=== PATIENT | male | born 1945 | race Caucasian/White ===

== ENCOUNTER → 2019-06-26 | Outpatient (CLI) | payer OTHER ==
[~2019-06-26] MED LIST: CETI10CH PO; FINA5TAB2 PO; GEMF600T5 PO; GLUCTAB64 PO; HYDR25TAB PO; INDO25CA PO
[2019-06-26 11:09] LABS: CALCIUM LEVEL 9.1 MG/DL (8.8-10.2); CREATININE FOR GFR 1.35 MG/DL (0.70-1.30); GLOMERULAR FILTRATION RATE 54.8 (>42); POTASSIUM SERUM 4.7 MEQ/L (3.5-5.1)
== END ==
LOC: M LAB 09:48
PROVIDERS: ATTEND Ophthalmology Retina Specialist
DX: H30.13 Disseminated chorioretinal inflammation, generalized (principal)

== ENCOUNTER → 2019-06-26 | Outpatient (CLI) | payer OTHER ==
[~2019-06-26] MED LIST changes: +INDO-16 PO; -INDO25CA PO
--- NOTE | 2019-06-27 03:43 | REP ---
Clinical: Hydrocele. Technique: Real time bartlett scale and color Doppler evaluation using linear high frequency and curved array transducers. Findings: A large complex left hydrocele with debris is appreciated filling the left mala scrotum and extending into the mid left inguinal canal. Left testicle is normal in appearance and vascularity without torsion and measures 4.8 x 2.9 x 2.7 cm. Incidental left epididymal head cyst measures 7 x 9 x 7 mm. No varicocele. Right testicle is identified within the right inguinal canal possibly due to mass effect from a large above mentioned left hydrocele. Right testicle is otherwise normal in appearance and vascularity without torsion and measures 5.1 x 2.3 x 2.6 cm. Incidental right epididymal head cyst measures 4 x 3 x 4 mm. No right hydrocele. No varicocele. Impression: 1. Large complex left hydrocele extends into the mid inguinal canal. Normal left testicle. 2. Normal right testicle identified within the inguinal canal possibly secondary to mass effect from the above mentioned large left hydrocele. Electronically Signed by Jens Trinidad MD 06/27/2019 03:35 A
== END ==
LOC: M RAD 10:10
PROVIDERS: ATTEND Nurse Practitioner Women's Health
DX: N43.3 Hydrocele, unspecified (principal); N50.3 Cyst of epididymis; H30.13 Disseminated chorioretinal inflammation, generalized

== ENCOUNTER 2019-07-16 08:57 | Day surgery (SDC) | payer OTHER ==
[~2019-07-16] VITALS: Ht 167.6 cm; Wt 84.4 kg
[~2019-07-16 08:57] MED LIST changes: +LIDOCAINE 1% MDV 20ML VIAL SQ PRN; +LR 1,000 ML IV ONE
[2019-07-16] MEDS ORDERED: TIMO0.5S29 (09:22)
[2019-07-16] MEDS ORDERED: VALA1TAB2 (09:22)
[2019-07-16] MEDS ORDERED: TAMS1CAP17 (09:22)
[2019-07-16] MEDS ORDERED: BRIM0.2S13 (09:22)
[2019-07-16] MEDS ORDERED: BUPIVACAINE HCL 0.25% 30 ML VIAL As Ordered ONE (09:35)
[2019-07-16] MEDS ORDERED: LIDOCAINE 1% SDV INJ 30 ML VIAL As Ordered ONE (09:35)
[2019-07-16] MEDS ORDERED: MUPIROCIN 2% OINT 22 GM TUBE As Ordered ONE (09:35)
[2019-07-16] MEDS ORDERED: BACITRACIN OINT 30GM As Ordered ONE (09:36)
[2019-07-16] MEDS ORDERED: MIDAZOLAM INJ 2 MG/2 ML VIAL (J2250) As Ordered ONE (10:21)
[2019-07-16] MEDS ORDERED: KETOROLAC 60 MG/2 ML VIAL (J1885) As Ordered ONE (10:21)
[2019-07-16] MEDS ORDERED: LIDOCAINE 2% INJ 100 MG/5 ML SDV (FOR ANES.) As Ordered ONE (10:21)
[2019-07-16] MEDS ORDERED: fentaNYL 250 MCG/5 ML INJECTION (J3010) As Ordered ONE (10:21)
[2019-07-16] MEDS ORDERED: ONDANSETRON 4MG/2ML VIAL (J2405) As Ordered ONE (10:21)
[2019-07-16] MEDS ORDERED: PROPOFOL 200 MG/20 ML VIAL As Ordered ONE (10:21)
[2019-07-16] MEDS ORDERED: dexameTHASONE 4 MG/ML 1ML VIAL (J1100) As Ordered ONE (10:21)
[2019-07-16] MEDS ORDERED: ePHEDrine SULFATE 25 MG/5 ML(5MG/ML) SYRINGE As Ordered ONE ×2 (10:53→11:14)
[2019-07-16] MEDS ORDERED: PHENYLephrine HCL 500 MCG/5 ML (100MCG/ML) SYRINGE (J2370) As Ordered ONE (11:02)
[2019-07-16] MEDS ORDERED: ACETAMINOPHEN 1000MG 100ML IV BTL (OFIRMEV) (J0131 PER 10MG) As Ordered ONE (11:08)
[2019-07-16] MEDS ORDERED: LR 1,000 ML IV SCH (12:15)
[2019-07-16] MEDS ORDERED: KETOROLAC 30 MG/ML VIAL (J1885) IV PRN ×2 (12:15→12:30)
[2019-07-16] MEDS ORDERED: fentaNYL 100 MCG/2 ML INJECTION (J3010) IV PRN (12:15)
[2019-07-16] MEDS ORDERED: ONDANSETRON 4MG/2ML VIAL (J2405) IV PRN (12:15)
[2019-07-16 13:30] VITALS: BP 194/97
--- NOTE | 2019-07-17 14:16 | RO ---
DATE OF PROCEDURE: 07/16/2019 PREPROCEDURE DIAGNOSIS: Left hydrocele. POSTPROCEDURE DIAGNOSIS: Left hydrocele. PROCEDURE: Left hydrocelectomy. 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 ANESTHESIA: General. OPERATIVE INDICATION: This 73-year-old male with a very large hydrocele, which has become symptomatic. He was brought to the operating room today for the above listed procedure. DESCRIPTION OF PROCEDURE: The patient was brought to the operating room and general anesthesia was induced. Prophylactic antibiotics were infused. He was then placed in supine position, and prepped and draped in the usual sterile fashion. At this point, an approximately 5-6 cm transverse incision was made over the left hemiscrotum. We then dissected down through the scrotal wall layers using electrocautery. The left testicle was delivered outside of the hemiscrotum inside the tunica vaginalis. At this point, the tunica vaginalis was punctured and approximately 750 mL of clear fluid was drained from the hydrocele sac. The hydrocele sac was then completely excised using electrocautery. At this point, I oversewed the edges of the tunica vaginalis using a running #3-0 Vicryl suture. I then checked for any areas of bleeding and bleeding was controlled with electrocautery. Once there was good hemostasis we irrigated out the operative site and then the testicle was delivered back inside the left hemiscrotum in its normal anatomic position. Of note, the testicle did appear normal size and there were no abnormalities seen on the testicle. Once the testicle was delivered back in the left hemiscrotum the dartos was closed with a running with a #3-0 Vicryl suture. The skin was then closed with interrupted #2-0 chromic sutures. Dressings were applied and this marked conclusion of the procedure. The patient was then awakened from anesthesia and transported to the recovery room in stable condition. ESTIMATED BLOOD LOSS: 5 mL. COMPLICATIONS: None. SPECIMENS: Left hydrocele sac. PLAN: The patient will followup in the clinic in a few weeks for a postoperative visit. [place]RI[place]
== END 2019-07-16 13:30 | disposition home or self-care (01) ==
LOC: M SDC 08:57
PROVIDERS: ATTEND Urology
DX: N43.3 Hydrocele, unspecified (principal); I10 Essential (primary) hypertension; K44.9 Diaphragmatic hernia without obstruction or gangrene; N40.0 Benign prostatic hyperplasia without lower urinary tract symptoms; Z79.899 Other long term (current) drug therapy
CPT/HCPCS: 55040; 88302; J0131; J0690; J1100; J1885; J2250; J2370; J2405; J3010

== ENCOUNTER 2019-09-01 10:25 | Observation (INO) | payer OTHER, MEDICARE ==
[~2019-09-01] VITALS: Ht 167.6 cm; Wt 85.1 kg
[~2019-09-01 10:25] MED LIST changes: +BRIM0.2S13; -LIDOCAINE 1% MDV 20ML VIAL SQ PRN; -LR 1,000 ML IV ONE; +TAMS1CAP17 PO; +TIMO0.5S29; +VALA1TAB2
[2019-09-01] MEDS ORDERED: VALT500T PO (10:55)
--- NOTE | 2019-09-01 11:23 | REP ---
Portable chest x-ray: Single view. History: Altered mental status. Findings: The lungs are symmetrically aerated and free of infiltrate. Pleural angles are sharp. Heart size is normal. EKG electrodes are seen. There is a small pleural opacity along the left lateral chest wall of uncertain significance. This measures approximately 3 cm in length. This overlies the inferior scapular tip. No rib destruction or rib fracture is appreciated. Lung jeff are otherwise clear. Pulmonary vasculature is not increased. Impression: 3 cm pleural opacity along the left lateral chest wall of uncertain significance. Recommend chest CT study. Electronically Signed by Elfego Villar MD 09/01/2019 01:51 P
--- NOTE | 2019-09-01 11:51 | REP ---
CT BRAIN WITHOUT CONTRAST: HISTORY: Rule out CVA. No comparison study. FINDINGS: Digital preliminary public health technologist radiograph is unremarkable. The bony calvarium is intact. Visualized paranasal sinuses are clear. The ocular globe on the left shows extensive increased density. Question prosthetic ocular globe. There is minimal vascular calcification in the distal internal carotid arteries bilaterally. There is no evidence of intracranial hemorrhage. No mass, infarct, midline shift or extra-axial fluid collection is seen. There is generalized volume loss. IMPRESSION: Generalized volume loss and mild vascular calcification. No acute intracranial abnormality. Hyperdense ocular globe on the left question eye prosthesis. Electronically Signed by Elfego Villar MD 09/01/2019 01:52 P
[2019-09-01 12:16] LABS: BASO # 0.1 10^3/uL (0.0-0.2); BASO % 0.9 % (0.0-1.0); EOS # 0.2 10^3/uL (0.0-0.5); EOS % 3.7 % (0.0-3.0); HEMATOCRIT 39.1 % (42.0-52.0); HEMOGLOBIN 12.7 g/dl (13.5-17.5); LYMPH # 0.5 10^3/uL (1.5-5.0); LYMPH % 9.9 % (24.0-44.0); MEAN CORPUSCULAR HEMOGLOBIN 30.2 pg (27.0-33.0); MEAN CORPUSCULAR HGB CONC 32.5 g/dl (32.0-36.5); MEAN CORPUSCULAR VOLUME 92.9 fl (80.0-96.0); MONO # 0.7 10^3/uL (0.0-0.8); MONO % 12.1 % (0.0-5.0); NEUTROPHILS # 3.9 10^3/uL (1.5-8.5); PLATELET COUNT, AUTOMATED 198 10^3/uL (150-450); RED BLOOD COUNT 4.21 10^6/uL (4.30-6.10); WHITE BLOOD COUNT 5.4 10^3/uL (4.0-10.0)
[2019-09-01 12:46] LABS: ALBUMIN 3.8 GM/DL (3.2-5.2); ALT/SGPT 26 U/L (12-78); BILIRUBIN,DIRECT < 0.1 MG/DL (0.0-0.2); BILIRUBIN,TOTAL 0.2 MG/DL (0.2-1.0); BLOOD UREA NITROGEN 33 MG/DL (7-18); CALCIUM LEVEL 8.9 MG/DL (8.8-10.2); CARBON DIOXIDE LEVEL 24 MEQ/L (21-32); CHLORIDE LEVEL 112 MEQ/L (98-107); CK-MB VALUE MASS 1.4 NG/ML (<3.6); CPK CREATINE PHOSPHOKINASE 82 U/L (39-308); CREATININE FOR GFR 1.55 MG/DL (0.70-1.30); GLOMERULAR FILTRATION RATE 46.8 (>42); GLUCOSE, FASTING 108 MG/DL (70-100); MB/CK RELATIVE INDEX 1.71 (< OR =4); POTASSIUM SERUM 3.9 MEQ/L (3.5-5.1); SODIUM LEVEL 142 MEQ/L (136-145); TOTAL PROTEIN 7.1 GM/DL (6.4-8.2); TROPONIN I < 0.02 NG/ML (< 0.10)
[2019-09-01 13:12] LABS: AMPHETAMINES LEVEL URINE NEGATIVE (NEGATIVE); BARBITURATES URINE NEGATIVE (NEGATIVE); BENZODIAZEPINES URINE NEGATIVE (NEGATIVE); CANNABINOIDS URINE NEGATIVE (NEGATIVE); COCAINE METABOLITE URINE NEGATIVE (NEGATIVE); METHADONE URINE NEGATIVE (NEGATIVE); OPIATES URINE NEGATIVE (NEGATIVE); PHENCYCLIDINE URINE NEGATIVE (NEGATIVE)
[2019-09-01] MEDS ORDERED: PROHANCE 279.3MG/ML 15ML VIAL (A9576) As Ordered ONE (13:59)
[2019-09-01] MEDS ORDERED: PROHANCE 279.3MG/ML 5ML VIAL (A9576) As Ordered ONE (13:59)
--- NOTE | 2019-09-01 15:01 | REP ---
MRI brain: 09/01/2019. Indication: Altered mental status. Stroke. Technique: Multiplanar shortened long TR sequences of the brain were obtained with 8.4 ml IV ProHance. Comparison: No previous MRI studies are available for direct comparison. Findings: There are no areas of restricted diffusion to suggest an acute infarction. There is no intracranial mass effect, hydrocephalus or significant hemorrhage. Volume loss is present. There are a few scattered foci of elevated CT prolongation throughout the subcortical and periventricular white matter, particularly within the right frontal region. There are no areas of pathologic gadolinium enhancement. The large intracranial flow voids are present. Chronic left ocular deformity is noted. Impression: No acute infarction or additional acute intracranial process. 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 Electronically Signed by Jd Guardado DO 09/01/2019 02:52 P
--- NOTE | 2019-09-01 15:48 | REP ---
Intracranial MRA: 09/01/2019. Indication: Altered mental status. Stroke. Technique: 3-D [id number] imaging of the intracranial vessels were performed with 3-D reconstructions provided. Findings: There is no evidence of intracranial high-grade stenosis, occlusion, aneurysm or AVM. 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 Predominantly origin of the left PROTOTYPE SPECIAL BUILD is present. Impression: No intracranial high-grade stenosis or vessel occlusion. Electronically Signed by Jd Guardado DO 09/01/2019 04:07 P
[2019-09-01] MEDS ORDERED: ASPIRIN 325 MG TAB PO ONE (16:15)
--- NOTE | 2019-09-01 17:17 | HPEPDOC ---
General Date of Admission 09/01/19 Date of Service: Sep 01, 2019 Attending Physician: JAKE FRIEDMAN DO Chief Complaint The patient is a 73-year-old male admitted with a reason for visit of Neuro S ptoms. Source: Patient Exam Limitations: No limitations Timing/Duration: Day(s) Severity: Mild History of Present Illness Patient 73 years old male with past medical history BPH, arthritis, horseshoe kidney presented hospital with double vision. Patient stated that left eye double vision started 3 days ago was associated with loss of balance because of that. Patient stated that he was recently treated for shingles of left eye, he developed shingles in March 2019. He received treatment with Valtrex. Few weeks ago patient developed left retinal detachment subsequently he had successful surgery. 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 Patient denies any other symptoms as fever, chills, nausea, vomiting, any focal weakness, shortness of breath, diarrhea or dysuria In the ER brain MRI was negative for stroke and multiple sclerosis, MRA was negative. consulted by phone recommended aspirin. Home Medications Scheduled Cetirizine HCl (Cetirizine HCl) 10 Mg Tab.chew, 10 MG PO DAILY for allergy symptoms, (Reported) Finasteride (Finasteride) 5 Mg Tablet, 5 MG PO DAILY, (Reported) Gemfibrozil (Gemfibrozil) 600 Mg Tablet, 600 MG PO BID, (Reported) Scheduled PRN Indomethacin (Indomethacin) 25 Mg Capsule, 25 MG PO TIDP PRN for PAIN, (Reported) with food Miscellaneous Medications Tamsulosin Hcl (Tamsulosin HCl) 0.4 Mg Capsule, (Reported) Valacyclovir HCl (Valtrex) 500 Mg Tablet, (Reported) Allergies Coded Allergies: No Known Allergies (Unverified , 06/23/19) Past Medical History Medical History Arthritis, BPH, horseshoe kidney, shingles Surgical History Abdominal aneurysm repair Family History Mother had diabetes Social History * Smoker: former Smoker Alcohol: Denies Drugs: denies A-FIB/CHADSVASC A-FIB History Current/History of A-Fib/PAF?: No Current PO Anticoag Therapy: No Review of Systems Constitutional: Denies: Chills Eyes: Reports: Vision change, Redness; Denies: Pain ENT: Denies: Head Aches, Ear Pain Skin: Denies: Rash, Lesions Pulmonary: Denies: Dyspnea, Cough Cardiovascular: Denies: Chest Pain, Palpitations Gastrointestinal: Denies: Nausea, Vomiting Genitourinary: Denies: Dysuria, Frequency Hematologic: Denies: Bruising, Bleeding Excessively Endocrine: Denies: Polydipsia, Polyphagia Musculoskeletal: Denies: Neck Pain, Back Pain Neurological: Denies: Weakness, Numbness Psych: Denies: Mood Normal, Anxiety Physical Examination General Exam: Positive: Alert, Cooperative Eye Exam: Positive: PERRLA, Other Eye Symptoms (horizontal left lateral nystagmus); Negative: EOMI ENT Exam: Positive: Atraumatic, Mucous membr. moist/pink Neck Exam: Positive: Supple; Negative: JVD Chest Exam: Positive: Clear to auscultation Heart Exam: Positive: Rate Normal Telemetry: Positive: Sinus Abdomen Exam: Positive: Normal bowel sounds Extremity Exam: Negative: Clubbing, Cyanosis Skin Exam: Positive: Nl turgor and temperature Neuro Exam: Positive: Normal Speech, Strength at 5/5 X4 ext, Normal Tone, Sensation Intact, Cranial Nerves 3-12 NL (deficiency of left 6 cranial nerve) Psych Exam: Positive: Mental status NL, Mood NL, Oriented x 3 Vital Signs Vital Signs Date Time Temp Pulse Resp B/P (MAP) Pulse Ox O2 Delivery O2 Flow Rate FiO2 09/01/19 17:00 90 98 09/01/19 15:30 164/78 (106) 09/01/19 15:15 17 Room Air 09/01/19 10:26 96.2 Laboratory Data Labs 24H Laboratory Tests 2 09/01/19 12:02: Immature Granulocyte % (Auto) 0.4, White Blood Count 5.4, Red Blood Count 4.21L, Hemoglobin 12.7L, Hematocrit 39.1L, Mean Corpuscular Volume 92.9, Mean Corpuscular Hemoglobin 30.2, Mean Corpuscular Hemoglobin Concent 32.5, Red Cell Distribution Width 15.2H, Platelet Count 198, Neutrophils (%) (Auto) 73.0H, Lymphocytes (%) (Auto) 9.9L, Monocytes (%) (Auto) 12.1H, Eosinophils (%) (Auto) 3.7H, Basophils (%) (Auto) 0.9, Neutrophils # (Auto) 3.9, Lymphocytes # (Auto) 0.5L, Monocytes # (Auto) 0.7, Eosinophils # (Auto) 0.2, Basophils # (Auto) 0.1, Nucleated Red Blood Cells % (auto) 0.0, Anion Gap 6L, Glomerular Filtration Rate 46.8, Calcium Level 8.9, Aspartate Amino Transf (AST/SGOT) 20, Alanine Aminotransferase (ALT/SGPT) 26, Alkaline Phosphatase 107, Total Bilirubin 0.2, Direct Bilirubin < 0.1, Total Creatine Kinase 82, Creatine Kinase MB 1.4, Creatine Kinase MB Relative Index 1.71, Troponin I < 0.02, Total Protein 7.1, Albumin 3.8, Albumin/Globulin Ratio 1.15, Thyroid Stimulating Hormone (TSH) 1.740 09/01/19 12:26: Urine Color YELLOW, Urine Appearance CLEAR, Urine pH 5.0, Urine Specific [place] 1.018, Urine Protein NEGATIVE, Urine Glucose (UA) NEGATIVE, Urine Ketones NEGATIVE, Urine Blood NEGATIVE, Urine Nitrite NEGATIVE, Urine Bilirubin NEGATIVE, Urine Urobilinogen 0.2, Urine Leukocyte Esterase NEGATIVE, Urine WBC (Auto) 1, Urine RBC (Auto) 1, Urine Hyaline Casts (Auto) 1, Urine Bacteria (Auto) NEGATIVE, Urine Squamous Epithelial Cells 0, Urine Mucus (Auto) SMALL, Urine Sperm (Auto) , Urine Opiates Screen NEGATIVE, Urine Methadone Screen NEGAT ALEJANDRO, Urine Barbiturates Screen NEGATIVE, Urine Phencyclidine Screen NEGATIVE, Urine Amphetamines Screen NEGATIVE, Urine Benzodiazepines Screen NEGATIVE, Urine Cocaine Metabolite Screen NEGATIVE, Urine Cannabinoids Screen NEGATIVE 09/01/19 16:31: CBC/BMP Laboratory Tests 09/01/19 12:02 Red Blood Count 4.21 L, Mean Corpuscular Volume 92.9, Mean Corpuscular Hemoglobin 30.2, Mean Corpuscular Hemoglobin Concent 32.5, Red Cell Distribution Width 15.2 H, Neutrophils (%) (Auto) 73.0 H, Lymphocytes (%) (Auto) 9.9 L, Monocytes (%) (Auto) 12.1 H, Eosinophils (%) (Auto) 3.7 H, Basophils (%) (Auto) 0.9, Neutrophils # (Auto) 3.9, Lymphocytes # (Auto) 0.5 L, Monocytes # (Auto) 0.7, Eosinophils # (Auto) 0.2, Basophils # (Auto) 0.1 Assessment/Plan Patient 73 years old male with past medical history BPH, arthritis, horseshoe kidney presented hospital with double vision. Patient stated that left eye double vision started 3 days ago was associated with loss of balance because of that. Patient stated that he was recently treated for shingles of left eye, he developed shingles in March 2019. He received treatment with Valtrex. Few weeks ago patient developed left retinal detachment subsequently he had successful surgery. 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 Patient denies any other symptoms as fever, chills, nausea, vomiting, any focal weakness, shortness of breath, diarrhea or dysuria In the ER brain MRI was negative for stroke and multiple sclerosis, MRA was negative. consulted by phone recommended aspirin. Problems (1) Nystagmus Problem Text: Differential diagnosis includes intranuclear ophthalmoplegia, 6 cranial nerve palsy, myastenia gravis, postviral ophthalmoplegia due to recent shingles infection, progressive supranuclear palsy. Aspirin for now Imaging study was negative We will check B12, folate, acetylcholine receptor antibody Appreciate/agree with neurologist consult Plan / VTE VTE Prophylaxis Ordered?: Yes JAKE FRIEDMAN DO Sep 01, 2019 17:17
[2019-09-01 17:19] LABS: ERYTHROCYTE SEDIMENTATION RATE 17 mm/hr (0-20)
[2019-09-01 17:28] LABS: C REACTIVE PROTEIN QUANTITATIV 0.41 MG/DL (0.00-0.30)
[2019-09-01] MEDS ORDERED: ALL10TAB29 PO (17:29)
[2019-09-01] MEDS ORDERED: PRED1SUS30 OS (17:29)
[2019-09-01 20:40] VITALS: BP 158/62
[2019-09-01] MEDS ORDERED: ATORVASTATIN 20 MG TAB PO SCH (21:00)
[2019-09-01] MEDS: HEPARIN SOD (PORCINE) 5000 UNITS/ML VIAL SC SCH (21:32)
[2019-09-01] MEDS: valACYclovir HCL 500 MG TAB PO SCH (21:32)
[2019-09-01] MEDS: GEMFIBROZIL 600 MG TAB PO SCH (21:32)
[2019-09-02 00:12] VITALS: BP 142/70
[2019-09-02 05:26] VITALS: BP 138/62
--- NOTE | 2019-09-02 07:33 | ECGEPIP ---
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
[2019-09-02] MEDS: HEPARIN SOD (PORCINE) 5000 UNITS/ML VIAL SC SCH ×2 (08:30→08:32)
[2019-09-02] MEDS: GEMFIBROZIL 600 MG TAB PO SCH (08:30)
[2019-09-02] MEDS: valACYclovir HCL 500 MG TAB PO SCH (08:30)
[2019-09-02] MEDS ORDERED: ASPIRIN 81 MG CHEW TABLET PO SCH (09:00)
[2019-09-02] MEDS ORDERED: CYANOCOBALAMIN 1,000 MCG/ML VIAL (J3420) IM SCH (09:00)
[2019-09-02] MEDS ORDERED: TAMSULOSIN 0.4 MG CAP PO SCH (09:00)
[2019-09-02] MEDS ORDERED: FINASTERIDE 5 MG TAB PO SCH (09:00)
[2019-09-02] MEDS ORDERED: ATOR1TAB21 PO (12:29)
[2019-09-02] MEDS ORDERED: B-12100021 PO (12:29)
[2019-09-02] MEDS ORDERED: ASPI81CH8 PO (12:29)
--- NOTE | 2019-09-02 17:17 | DS.PDOC ---
Discharge Summary General Date of Admission Sep 01, 2019 at 16:58 Date of Discharge 09/02/2019 Attending Physician: STUART GONZALEZ MD Discharge Summary PROCEDURES PERFORMED DURING STAY: None. ADMITTING DIAGNOSES: 1. Lateral nystagmus. DISCHARGE DIAGNOSES: 1. Lateral nystagmus. COMPLICATIONS/CHIEF COMPLAINT: Internuclear Ophthalmoplegia. 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 MRI is negative for any acute stroke. Patient was diagnosed a few months ago with shingles in his eye, with subsequent retinal detachment same eye, underwent surgical repair, and reports double vision in that eye since then, has been following with ophthalmology throughout this entire dilemma, has remained stable. Patient reports her current symptoms of blurrinessdouble vision, or chronic without any changes over the past few days. He has no additional complaints at this time, denies any short of breath, chest pain, abdominal pain, nausea, vomiting, which is go home. HOSPITAL COURSE: As above. DISCHARGE MEDICATIONS: Please see below. ALLERGIES: Please see below. PHYSICAL EXAMINATION: VITAL SIGNS: Please see below. GENERAL: No distress HEENT: Left pupil larger than right, both reactive to light, left eye lateral nystagmus appreciated. NECK: Supple CARDIOVASCULAR EXAMINATION: S1, S2, no murmurs RESPIRATORY EXAMINATION: Clear to auscultation, no wheezing ABDOMINAL EXAMINATION: Soft, nontender, nondistended, positive bowel sounds EXTREMITIES: Range of motion intact SKIN: No rash NEUROLOGICAL EXAMINATION: Alert and oriented 3, no focal deficits PSYCHIATRIC EXAMINATION: Calm and cooperative LABORATORY DATA: Please see below. IMAGING: MRI negative for acute stroke PROGNOSIS: Good ACTIVITY: As tolerated. DIET: Cardiac DISCHARGE PLAN: Patient is to follow up with PCP and ophthalmology within 1-2 weeks DISPOSITION: 01 Home, Self-Care. DISCHARGE INSTRUCTIONS: 1. As above. DISCHARGE CONDITION: Stable. TIME SPENT ON DISCHARGE: Greater than 23 minutes. Vital Signs/I&Os Vital Signs Date Time Temp Pulse Resp B/P (MAP) Pulse Ox O2 Delivery O2 Flow Rate FiO2 09/02/19 05:26 97.2 79 18 138/62 (87) 95 09/01/19 19:28 Room Air I&O- Last 24 Hours up to 6 AM 09/02/19 06:00 Intake Total 300 ml Output Total 950 ml Balance -650 ml Discharge Medications Scheduled Aspirin (Children's Aspirin) 81 Mg Tab.chew, 324 MG PO DAILY Atorvastatin Calcium (Atorvastatin Calcium) 20 Mg Tablet, 20 MG PO QHS Cetirizine HCl (Cetirizine HCl) 10 Mg Tablet, 10 MG PO DAILY, (Reported) Cyanocobalamin (Vitamin B-12) (B-12) 1,000 Mcg Tablet, 1,000 MCG PO DAILY Finasteride (Finasteride) 5 Mg Tablet, 5 MG PO DAILY, (Reported) Gemfibrozil (Gemfibrozil) 600 Mg Tablet, 600 MG PO BID, (Reported) Prednisolone Acetate/Pf (Prednisolone Acet 1% Eye Drop) 5 Ml Drops.susp, 1 DROP OS QID, (Reported) Tamsulosin Hcl (Tamsulosin HCl) 0.4 Mg Capsule, 0.4 MG PO DAILY, (Reported) Valacyclovir HCl (Valtrex) 500 Mg Tablet, 500 MG PO TID, (Reported) Allergies Coded Allergies: No Known Allergies (Unverified , 06/23/19) STUART GONZALEZ MD Sep 02, 2019 17:17
--- NOTE | 2019-09-02 23:23 | ECHO ---
DATE OF PROCEDURE: 09/02/2019 REFERRING PHYSICIAN: Dr. Derrick Lu INDICATION: Acute stroke. HEIGHT: 167 cm WEIGHT: 85 kg 2D MEASUREMENTS: Ventricular septum: 1.23 cm Posterior wall: 1.20 cm Left ventricle diastole: 4.2 cm Left atrium: 4.4 cm Aortic annulus: 2.0 cm Aortic root: 3.3 cm Left atrial volume index: 25 DOPPLER MEASUREMENTS: Mild-moderate aortic regurgitation. Aortic regurgitation pressure halftime: 354 milliseconds Peak aortic velocity: 121 cm/s LVOT velocity: 104 cm/s LVOT VTI: 20.5 cm Very mild mitral regurgitation. Mitral E velocity: 55.7 cm/s Mitral A velocity: 75.1 cm/s Trace tricuspid regurgitation. MITRAL ANNULAR TISSUE DOPPLER: E prime lateral: 6.74 cm/s E prime septal: 4.8 cm/s DESCRIPTION: Rhythm was sinus. This was a moderately technically difficult echocardiogram. This was a 2D, M-mode, color flow Doppler and pulse wave Doppler examination and included mitral annular tissue Doppler. No pericardial effusion. CONCLUSIONS: 1. Borderline concentric left ventricle hypertrophy. Normal regional left ventricular (LV) wall motion and wall thickening. Normal LV systolic function. Left ventricular ejection fraction (LVEF) 65% by visual estimate. Grade 1 LV diastolic dysfunction. 2. Mild left atrial dilatation. 3. Mild aortic valve sclerosis of a 3-cusp aortic valve. Mild-moderate aortic regurgitation. 4. Mild mitral annular calcification. Very mild mitral regurgitation. 5. Normal right ventricle size and systolic function.
[2019-09-05 10:10] LABS: ACETYLCHOLINE RCPTOR BINDING A < 0.03 nmol/L (0.00-0.24); STRIATIONAL ANTIBODIES Negative (Neg:<1:40)
== END 2019-09-02 15:21 | disposition home or self-care (01) ==
LOC: M ED 10:25 → M ED INP 16:58 → M MS4PR 20:35
PROVIDERS: ADMIT Internal Medicine; ATTEND Internal Medicine
DX: H55.09 Other forms of nystagmus (principal); H51.22 Internuclear ophthalmoplegia, left eye; E78.49 Other hyperlipidemia; N40.0 Benign prostatic hyperplasia without lower urinary tract symptoms; R41.82 Altered mental status, unspecified; M13.88 Other specified arthritis, other site; Z79.82 Long term (current) use of aspirin; Z79.899 Other long term (current) drug therapy; Z79.52 Long term (current) use of systemic steroids; Z87.891 Personal history of nicotine dependence; R29.818 Other symptoms and signs involving the nervous system
CPT/HCPCS: 70450; 70544; 70553; 71045; 80048; 80076; 80307; 81001; 82525; 82550; 82553; 82607; 83516; 83519; 84425; 84443; 84484; 85025; 85652; 86140; 86255; 93005; 93041; 93306; 94760; 96372; 97161; 97165; 99285; A9576; G0378; J3420